=== PATIENT | female | born 1990 | race Caucasian/White ===

== ENCOUNTER 2018-06-20 09:58 | Day surgery (SDC) | payer BC ==
[2018-06-20] MEDS ORDERED: HEPARIN 1000 UNITS/ML 10 ML INJ (10:50)
[2018-06-20] MEDS ORDERED: LIDOCAINE 1% (MPF) 30 ML INJ (10:50)
[2018-06-20] MEDS ORDERED: GELATIN SIZE 100 SPONGE (10:50)
[2018-06-20] MEDS ORDERED: THROMBIN (BOVINE) 5,000 UNIT VIAL TP (10:50)
[2018-06-20 11:00] LABS: ADD MAN DIFF? NO
[2018-06-20 11:02] LABS: ABNORMAL IP MESSAGE 1; BASOPHILS % 0.4 % (0.0-2.0); HEMATOCRIT 34.1 % (37.0-47.0); HEMOGLOBIN 10.4 g/dl (12.0-16.0); LYMPHOCYTES # 0.4 10^3/ul (0.8-2.9); LYMPHOCYTES % 14.6 % (15.0-51.0); MEAN CORPUSCULAR HGB CONC 30.5 g/dl (32.0-37.0); MEAN PLATELET VOLUME 12.7 fl (7.4-10.4); MONOCYTE # 0.3 10^3/ul (0.3-0.9); MONOCYTES % 11.2 % (0.0-11.0); NEUTROPHIL # 1.9 10^3/ul (1.6-7.5); NEUTROPHILS % 73.4 % (39.0-77.0); PLATELET COUNT 86 10^3/UL (140-415); RED BLOOD COUNT 3.59 10^6/ul (4.20-5.40); RED CELL DISTRIBUTION WIDTH 14.3 % (11.5-14.5)
[2018-06-20 11:02] LABS: WHITE BLOOD COUNT 2.6 10^3/ul (4.8-10.8)
[2018-06-20 11:05] LABS: HOLD TRANSMISSIONS 1; POSITIVE DIFF @See below
[2018-06-20 11:19] LABS: ALANINE AMINOTRANSFERASE 10 IU/L (13-69); ALBUMIN 3.6 g/dl (3.3-4.9); ALBUMIN/GLOBULIN RATIO 0.94; ALKALINE PHOSPHATASE 52 IU/L (42-121); ANION GAP 10 (5-13); ASPARTATE AMINO TRANSFERASE 23 IU/L (15-46); BILIRUBIN,INDIRECT 0.3 mg/dl (0-1.1); BILIRUBIN,TOTAL 0.3 mg/dl (0.2-1.3); BLOOD UREA NITROGEN 14 mg/dl (7-20); CALCIUM 9.1 mg/dl (8.4-10.2); CARBON DIOXIDE 31 mmol/L (21-31); CHLORIDE 102 mmol/L (97-110); Estimated GFR 14 mL/min (>60); GLUCOSE 67 mg/dl (70-220); POTASSIUM 3.8 mmol/L (3.5-5.1); TOTAL PROTEIN 7.4 g/dl (6.1-8.1)
[2018-06-20 11:24] LABS: CREATININE 3.72 mg/dl (0.44-1.00)
[2018-06-20 11:26] LABS: SODIUM 143 mmol/L (135-144)
[2018-06-20 11:37] LABS: PROTIME 13.3 Sec (11.9-14.9)
[2018-06-20] MEDS: HEPARIN 1000 UNITS/ML 10 ML INJ IRR (12:00)
[2018-06-20] MEDS ORDERED: FENTAnyl 50 MCG/ML VIAL ×2 (12:46→13:29)
[2018-06-20] MEDS ORDERED: PROPOFOL 20 ML (12:46)
[2018-06-20] MEDS ORDERED: DEXAMETHASONE 4 MG/ML 5 ML INJ (12:53)
[2018-06-20] MEDS ORDERED: METOCLOPRAMIDE 10 MG INJ (12:53)
[2018-06-20] MEDS ORDERED: ONDANSETRON 4 MG INJ (12:53)
[2018-06-20] MEDS ORDERED: FAMOTIDINE 20 MG INJ (12:53)
[2018-06-20] MEDS ORDERED: CEFAZOLIN 1 GM INJ (12:53)
[2018-06-20] MEDS ORDERED: LABETALOL HCL 20MG INJ IV (13:00)
[2018-06-20] MEDS ORDERED: MIDAZOLAM 1 MG/ML 2 ML INJ IV (13:00)
[2018-06-20] MEDS ORDERED: HYDROmorphONE 1 MG/5 ML IV SYRINGE IV ×2 (13:00)
[2018-06-20] MEDS ORDERED: LIDOCAINE 2% (SDV) 5 ML INJ (13:10)
[2018-06-20] MEDS ORDERED: PHENYLephrine (100 MCG/ML) 10ML SYG (13:14)
[2018-06-20] MEDS ORDERED: DEXTROSE 50% 50 ML SYRINGE (13:59)
[2018-06-20] MEDS: HYDROmorphONE 1 MG/5 ML IV SYRINGE IV ×4 (14:00→14:34)
[2018-06-20] MEDS: ONDANSETRON 4 MG INJ IV (14:02)
[2018-06-20] MEDS: DEXTROSE 50% 50 ML SYRINGE IV (14:04)
[2018-06-20] MEDS ORDERED: HYDROmorphONE 0.5 MG/0.5 ML SYG IV (14:30)
[2018-06-20] MEDS: GABAPENTIN 300 MG CAP PO (14:36)
[2018-06-20 14:38] LABS: PARTIAL THROMBOPLASTIN TIME 71.3 Sec (23.0-35.0)
[2018-06-20] MEDS: OXYCODONE/ACETAMINOPHEN (5/325) TAB PO (15:24)
== END 2018-06-20 15:54 | disposition home or self-care (01) ==
LOC: SDS 09:58
DX: T82.7XXA Infection and inflammatory reaction due to other cardiac and vascular devices, implants and grafts, initial encounter (principal); Y84.1 Kidney dialysis as the cause of abnormal reaction of the patient, or of later complication, without mention of misadventure at the time of the procedure; I12.0 Hypertensive chronic kidney disease with stage 5 chronic kidney disease or end stage renal disease; N18.6 End stage renal disease; M32.8 Other forms of systemic lupus erythematosus
CPT/HCPCS: 35903; 71045; 80053; 82962; 84703; 85025; 85610; 85730; 87070; 87075; 87116; 88304; 93005

== ENCOUNTER 2018-11-09 09:20 | Day surgery (SDC) | payer BC, OTHER, MEDICAID ==
[2018-11-09] MEDS ORDERED: SOD CHLORIDE 0.9% 500 ML IV (10:30)
[2018-11-09 10:41] LABS: ADD MAN DIFF? NO
[2018-11-09 10:44] LABS: WHITE BLOOD COUNT 9.5 10^3/ul (4.8-10.8)
[2018-11-09 10:44] LABS: HEMATOCRIT 32.9 % (37.0-47.0); HEMOGLOBIN 10.2 g/dl (12.0-16.0); LYMPHOCYTES # 1.3 10^3/ul (0.8-2.9); LYMPHOCYTES % 13.5 % (15.0-51.0); MEAN CORPUSCULAR VOLUME 90.4 fl (82.0-101.0); MEAN PLATELET VOLUME 10.4 fl (7.4-10.4); MONOCYTE # 0.7 10^3/ul (0.3-0.9); MONOCYTES % 7.4 % (0.0-11.0); NEUTROPHIL # 7.5 10^3/ul (1.6-7.5); NEUTROPHILS % 78.6 % (39.0-77.0); PLATELET COUNT 138 10^3/UL (140-415); RED BLOOD COUNT 3.64 10^6/ul (4.20-5.40); RED CELL DISTRIBUTION WIDTH 12.4 % (11.5-14.5)
[2018-11-09 11:02] LABS: ALANINE AMINOTRANSFERASE 45 IU/L (13-69); ALBUMIN 3.6 g/dl (3.3-4.9); ALBUMIN/GLOBULIN RATIO 1.33; ALKALINE PHOSPHATASE 46 IU/L (42-121); ANION GAP 8 (5-13); ASPARTATE AMINO TRANSFERASE 23 IU/L (15-46); BILIRUBIN,INDIRECT 0.9 mg/dl (0-1.1); BILIRUBIN,TOTAL 0.9 mg/dl (0.2-1.3); CARBON DIOXIDE 33 mmol/L (21-31); CHLORIDE 98 mmol/L (97-110); Estimated GFR 15 mL/min (>60); GLUCOSE 69 mg/dl (70-220); SODIUM 139 mmol/L (135-144); TOTAL PROTEIN 6.3 g/dl (6.1-8.1)
[2018-11-09 11:04] LABS: CALCIUM 8.7 mg/dl (8.4-10.2)
[2018-11-09 11:09] LABS: BLOOD UREA NITROGEN 27 mg/dl (7-20); CREATININE 3.58 mg/dl (0.44-1.00); INR 1.16; POTASSIUM 3.5 mmol/L (3.5-5.1); PROTIME 14.9 Sec (11.9-14.9); PT RATIO 1.2
[2018-11-09] MEDS: HEPARIN 1000 UNITS/ML 10 ML INJ IRR (11:30)
[2018-11-09] MEDS ORDERED: DIPHENHYDRAMINE 50 MG INJ IV (11:30)
[2018-11-09] MEDS ORDERED: FENTAnyl 50 MCG/ML VIAL IV ×3 (11:30)
[2018-11-09] MEDS ORDERED: HYDROmorphONE 1 MG/5 ML IV SYRINGE IV ×3 (11:30)
[2018-11-09] MEDS ORDERED: MEPERIDINE 25 MG INJ IV (11:30)
[2018-11-09] MEDS ORDERED: ONDANSETRON 4 MG INJ IV (11:30)
[2018-11-09] MEDS ORDERED: CEFAZOLIN 1 GM INJ (11:32)
[2018-11-09] MEDS ORDERED: FENTAnyl 50 MCG/ML VIAL ×2 (11:32→12:17)
[2018-11-09] MEDS ORDERED: PROPOFOL 20 ML (11:32)
[2018-11-09] MEDS ORDERED: MIDAZOLAM 1 MG/ML 2 ML INJ (11:32)
[2018-11-09] MEDS ORDERED: LIDOCAINE 1% (MPF) 30 ML INJ (11:42)
[2018-11-09] MEDS ORDERED: HEPARIN 1000 UNITS/ML 10 ML INJ (11:42)
[2018-11-09] MEDS ORDERED: ROPIVACAINE 0.2% 20 ML VIAL (11:51)
[2018-11-09 12:02] LABS: PARTIAL THROMBOPLASTIN TIME > 180.0 Sec (23.0-35.0)
[2018-11-09] MEDS ORDERED: METOPROLOL 5 MG INJ (12:07)
[2018-11-09] MEDS: LIDOCAINE 1% (MPF) 30 ML INJ INJ (12:10)
[2018-11-09] MEDS ORDERED: hydrALAzine 20 MG INJ (12:17)
[2018-11-09] MEDS: hydrALAzine 20 MG INJ IV (13:45)
[2018-11-09] MEDS: LABETALOL HCL 20MG INJ IV (13:54)
== END 2018-11-09 15:48 | disposition home or self-care (01) ==
LOC: SDS 09:20
DX: T82.590D Other mechanical complication of surgically created arteriovenous fistula, subsequent encounter (principal); Y84.1 Kidney dialysis as the cause of abnormal reaction of the patient, or of later complication, without mention of misadventure at the time of the procedure; I12.0 Hypertensive chronic kidney disease with stage 5 chronic kidney disease or end stage renal disease; N18.6 End stage renal disease
CPT/HCPCS: 36821; 71045; 80053; 84703; 85025; 85610; 85730; 93005